=== PATIENT | male | born 1980 | race Caucasian/White ===

== ENCOUNTER → 2017-05-18 | Outpatient (CLI) | payer BC, SELFPAY | PROVIDERS: Visit Provider Surgery | DX: R13.10 Dysphagia, unspecified (principal) | CPT/HCPCS: 74247 ==

== ENCOUNTER 2017-05-30 06:49 | Day surgery (SDC) | payer BC, SELFPAY ==
[2017-05-30 07:17] VITALS: BP 134/79; PULSE 79; RESP 16; TEMP 36.6; O2SAT 96
[2017-05-30 07:33] VITALS: O2SAT 98
[2017-05-30 07:48] VITALS: BMI 28.2
--- NOTE | 2017-05-30 07:48 | HMH.SCOPE ---
- Procedure: Date/Time of Procedure:: 05/30/17 08:13 Procedure Performed:: Esophagogastroduodenoscopy with Biopsies Indications:: Patient is a 37 year old white male on Suboxone, Klonopin, Lexapro referred by Dr. Aj for upper endoscopy to evaluate symptoms consistent with dysphagia. He has been on omeprazole for symptoms of heartburn and reflux for about two years. However, for the past couple of months he has had symptoms where he feels his food does not pass and he has to regurgitate occasionally. I ordered an esophagagram which was normal. Plan was to proceed with upper endoscopy with biopsies and possible dilatation. Performing Provider:: David Willis MD Referring Provider:: Amos Aj MD Sedation:: Propofol Procedure:: Esophagogastroduodenoscopy Findings:: Patient was positioned in a lateral decubitus position. Adequate intravenous sedation was achieved with titration of propofol. Endoscope was inserted via the oropharynx. Esophagus appeared normal. There is no evidence of any stricture or obvious Koch's. Stomach was cannulated and insufflated. Retroflexion revealed no evidence of any significant hiatal hernia. Gastric mucosa patient is obtained for CLOtest for H. pylori. There is an area of prominent gastric mucosa which was biopsied. Pylorus was traversed and within the duodenal bulb there was a focal area of esophagitis. This was biopsied. Biopsy was obtained at the gastroesophageal junction. A couple of distal esophageal biopsies were obtained. Endoscope was withdrawn. Impressions:: Mild focal gastritis Recommendations:: Continue proton pump inhibitors. Treat H. Pylori if positive Complications:: None Estimated blood obtained (mL): 1
[2017-05-30 07:56] VITALS: BP 117/67; PULSE 61; RESP 18; TEMP 36.6; O2SAT 98
[2017-05-30 08:02] VITALS: BP 127/67; PULSE 59; RESP 20; O2SAT 97
--- NOTE | 2017-05-30 08:04 | HMH.ANESCL ---
[facility] Anesthesia Checklist - Airway Assessment C-Spine Mobility Assessed: Yes (MP2) TMJ Mobility Assessed: Yes Dentition: Good Dentition - Neurological Assessment Level of Consciousness: Awake, Alert Hx Seizures: No Numbness or tingling in extremities: No - Anesthesia Plan Anesthesia Risk discussed: Yes ASA Class: II Anesthesia Type: MAC [facility] Anesthesia HX I have reviewed the patient's past medical history: Yes Medical History: Reports:: Hypertension Comment: can- no cpap. anxiety/depression. currently taking suboxone Laterality Cases: Left: Arthroscopy Shoulder (rcr) Other Surgeries: Yes: Other (dental) *Family Hx:: No significant family history
--- NOTE | 2017-05-30 08:07 | P.PN_ITS ---
[facility] Anesthesia Checklist - Airway Assessment C-Spine Mobility Assessed: Yes (MP2) TMJ Mobility Assessed: Yes Dentition: Good Dentition - Neurological Assessment Level of Consciousness: Awake, Alert Hx Seizures: No Numbness or tingling in extremities: No - Anesthesia Plan Anesthesia Risk discussed: Yes ASA Class: II Anesthesia Type: MAC [facility] Anesthesia HX I have reviewed the patient's past medical history: Yes Medical History: Reports:: Hypertension Comment: can- no cpap. anxiety/depression. currently taking suboxone Laterality Cases: Left: Arthroscopy Shoulder (rcr) Other Surgeries: Yes: Other (dental) *Family Hx:: No significant family history
[2017-05-30 08:12] VITALS: BP 115/72; PULSE 51; RESP 20; O2SAT 96
[2017-05-30 08:25] VITALS: BP 130/75; PULSE 50; RESP 20; TEMP 36.6; O2SAT 97
== END 2017-05-30 08:25 | disposition home or self-care (01) ==
LOC: OUTP 06:54
PROVIDERS: Family Provider Emergency Medicine; PCP Emergency Medicine; Visit Provider Surgery
PROC: 0DJ08ZZ Inspection of Upper Intestinal Tract, Via Natural or Artificial Opening Endoscopic (ICD-10-PCS; CPT 43235; principal; 2017-05-30 07:30)
DX: K29.70 Gastritis, unspecified, without bleeding (principal)
CPT/HCPCS: 43239; 87339

== ENCOUNTER → 2021-03-15 10:53 | Outpatient (CLI) | payer BC, SELFPAY ==
--- NOTE | 2021-03-15 10:53 | CA_ITS ---
APPROVED REPORT EXAM: Comprehensive 2D, Doppler, and color-flow Echocardiogram Nurse Technician: Elizabeth Lanier CRT Ht: 6 ft 4 in Wt: 233lbs BSA: 2.36 BP: 128/74 mmHg Indications: Hyperlipidemia, SMOKER, KYRA 2D Dimensions LVOT 2.04 cm (M/F) 1.5-2.5 LA Volume 43.20 mL LA Volume Index 18.30 mL/m2 (M/F) 16-34 M-Mode Dimensions RVDd 2.81 cm (0.9-2.6) LA Diam 3.90 cm (1.9-4.0) LVDd 5.72 cm (3.5-5.7) Ao Diam 4.21 cm (2.0-3.7) LVDs 3.37 cm (3.5-5.7) IVSd 1.21 cm (0.6-1.1) PWd 1.14 cm (0.6-1.1) EF (Teich) 71.20% FS 41.10% EDV (Teich) 161.30 mL TAPSE 3.45 (<1.7) ESV (Teich) 46.40 mL LV Diastology E Decel Time 243.00 (160-240 msec) E/A Ratio 1.31 MED E' 9.40 (< 7 cm/sec) MED A' 10.80 cm/s E'/MED E' Ratio 8.68 (>14) LAT E' 13.70 (<10 cm/sec) LAT A' 16.40 cm/s E/LAT E' Ratio 5.96 (>14) Aortic Valve AO Peak GR. 5.60 mmHg Mitral Valve MV A Velocity 62.00 (40-130 cm/s) E/A Ratio 1.31 MV Decel. Time 243.00 (160-240 ms) Pulmonary Valve PV Peak Velocity 101.00 (50-150 cm/s) Tricuspid Valve TR P. Velocity 209.00 cm/s RAP Estimate 10.00 mmHg RVSP 27.40 mmHg Left Ventricle Left atrium is qualitatively mildly enlarged, left ventricle is normal size, mild quantitative concentric left ventricular hypertrophy, visually estimated ejection fraction 55% with no regional wall motion abnormality, diastolic parameters are within normal range. Right Ventricle Right atrium and right ventricle are relatively normal size and function. Aortic Valve Aortic valve is minimally thickened and fibrosed, there is no aortic stenosis or aortic insufficiency. Mitral Valve Mitral valve grossly normal, there is trace mitral regurgitation. Tricuspid Valve Tricuspid valve grossly normal, there is trace tricuspid regurgitation, tricuspid regurgitation jet velocity is inadequate for calculation of the right ventricular systolic pressure. Pulmonic Valve Pulmonic valve is poorly visualized. Great Vessels Aortic root is normal size. Pericardium No significant pericardial effusion noted. Conclusion 1. Normal left ventricular size, preserved left ventricular systolic function, visually estimated ejection fraction 55% with no regional wall motion abnormality, there is mild concentric left ventricular hypertrophy, diastolic parameters are within normal range. 2. Trace mitral and tricuspid regurgitation. 3. No significant pericardial effusion noted. Electronically signed by : Sidney Ann MD 03/15/2021 21:25:36
== END ==
PROVIDERS: PCP Physician Assistant; Visit Provider Internal Medicine
DX: I10 Essential (primary) hypertension (principal); G47.33 Obstructive sleep apnea (adult) (pediatric); Z72.0 Tobacco use
CPT/HCPCS: 93306

== ENCOUNTER 2022-04-02 14:46 | Emergency (ER) | payer BC, SELFPAY ==
--- NOTE | 2022-04-02 15:44 | EXP.UTC ---
Discharge Plan Disposition Patient Disposition: Home, Self-Care Condition: Good Prescriptions Prescriptions: New ibuprofen [IBU] 800 mg tablet 800 mg PO Q8HP PRN (Reason: Moderate Pain) Qty: 30 0RF ondansetron 4 mg Tablet,Disintegrating 4 mg PO Q8H PRN (Reason: Nausea) Qty: 12 0RF No Action ergocalciferol (vitamin D2) [Vitamin D2] 1,250 mcg (50,000 unit) capsule 1,250 mcg PO WEEKLY propranolol 80 mg capsule,extended release 24 hr 80 mg PO DAILY Qty: 90 3RF losartan 50 mg tablet 50 mg PO DAILY Qty: 90 3RF buprenorphine-naloxone 8-2 mg tablet, sublingual 1 tab SUBLINGUAL DAILY Qty: 21 Referrals Follow up/Referrals: Trip Aj MD [Primary Care Provider] - See instructions Activity Restrictions/Add. Instructions Additional Instructions/Restrictions: Drink plenty of fluids. Take tylenol or ibuprofen for pain or fever. Take the medications as directed. Follow up with your regular doctor. GO TO THE ER FOR ANY WORSENING SYMPTOMS Clinical Impressions Clinical Impression: COVID-19, Viral syndrome Instructions Patient Instructions: Coronavirus Disease 2019, Preventing the Spread of Coronavirus Discharge Instructions Discharge ED Provider: Jose Cordoba [facility] HPI General Stated complaint: Covid Test Time Seen by Provider: 04/02/22 15:40 History of Present Illness Provider Complaint: He states that he has felt bad since yesterday. He has had a headache, chills, low grade fever and nausea. Related Data Home Medications Medication Instructions Recorded Confirmed buprenorphine 8 mg-naloxone 2 mg 1 tab sublingual DAILY #21 tabs 07/12/19 02/23/22 sublingual tablet ergocalciferol (vitamin D2) 1,250 1,250 mcg PO WEEKLY 02/23/22 02/23/22 mcg (50,000 unit) capsule (Vitamin D2) Previous Rx's Medication Instructions Recorded losartan 50 mg tablet 50 mg PO DAILY #90 tabs 02/23/22 propranolol 80 mg capsule,24 80 mg PO DAILY hypertension #90 02/23/22 hr,extended release caps ibuprofen 800 mg tablet (IBU) 800 mg PO Q8HP PRN Moderate Pain 04/02/22 #30 tabs ondansetron 4 mg disintegrating 4 mg PO Q8H PRN Nausea #12 tabs 04/02/22 tablet Allergies Allergy/AdvReac Type Severity Reaction Status Date / Time No Known Allergies Allergy Verified 02/23/22 13:15 PFSH PFSH Medical History Chest pain Daytime somnolence Dyspnea KYRA (obstructive sleep apnea) Restless sleeper Snoring Social History Smoking Status: Current every day smoker tobacco type: cigarettes packs per day: 1 alcohol intake: current counseling provided: provider counseling substance use type: former substance user current occupational status: employed Travel in the last 8 weeks: Inside the [place] household members: family housing: house ROS Obtained: Yes All systems reviewed & no additional complaints except as documented Constitutional Constitutional: Reports chills and Reports fever(s) Eyes Eyes: Denies eye discharge ENT Ears, Nose, Mouth, and Throat: Reports as per HPI Cardiovascular Cardiovascular: Denies chest pain Respiratory Respiratory: Denies chest congestion and Reports cough Gastrointestinal Gastrointestingal: Reports nausea; Denies abdominal pain, constipation, cramping, diarrhea or vomiting Musculoskeletal Musculoskeletal: Denies arthralgias Integumentary/Breasts Skin/Breast: Denies rash Neurologic Neurologic: Denies paresthesias Physical Exam General General appearance: alert and in no apparent distress Head Head exam: atraumatic, normocephalic and normal inspection Eye Eye exam: Present normal appearance, PERRL and EOMI ENT ENT exam: Present mucous membranes moist and normal external ear exam Expanded ENT Exam TM/Canal exam: Bilateral TM: erythema and bulging Nose exam: Absent sinus tenderness Mouth exam: Present normal e
[2022-04-02 16:00] LABS: UTC Influenza A Antigen Negative (Negative); UTC Influenza B Antigen Negative (Negative)
[2022-04-02 16:10] VITALS: BP 108/71; PULSE 78; RESP 18; TEMP 37.2; O2SAT 99; BMI 29.6
[2022-04-02 16:16] VITALS: BP 108/71; PULSE 78; RESP 18; TEMP 37.2
== END 2022-04-02 16:18 | disposition home or self-care (01) ==
PROVIDERS: Emergency Provider Nurse Practitioner Family; PCP Emergency Medicine
DX: U07.1 COVID-19 (principal)
CPT/HCPCS: 87804; 99212; C9803; G0463; U0003; U0005

== ENCOUNTER → 2023-03-16 12:07 | Outpatient (CLI) | payer BC, SELFPAY ==
[2023-03-16 12:28] LABS: Basophils # 0.1 K/mm3 (0-0.2); Basophils % 0.5 % (0.1-2.0); Eosinophils # 0.5 K/mm3 (0.0-0.4); Eosinophils % 4.6 % (0.1-12.0); Hematocrit 43.7 % (42.0-52.0); Lymphocytes # 2.3 K/mm3 (0.7-4.5); Lymphocytes % 22.1 % (10-50); Mean Corpuscular HGB Conc 34.3 g/dL (31.8-35.4); Mean Corpuscular Hemoglobin 32.2 pg (27.0-31.2); Mean Corpuscular Volume 93.8 fl (80-94); Mean Platelet Volume 7.9 fl (7.4-10.4); Monocytes # 0.6 K/mm3 (0.1-1.0); Monocytes % 5.3 % (1.7-9.3); Neutrophils # 7.1 K/mm3 (1.8-7.8); Neutrophils % 67.4 % (37.0-80.0); Platelet Count 268 K/mm3 (142-424); Red Blood Count 4.66 M/mm3 (4.60-6.20); Red Cell Distribution Width 12.7 % (11.5-17.5); White Blood Count 10.5 K/mm3 (4.8-10.8)
[2023-03-16 13:27] LABS: Alanine Aminotransferase 29 U/L (12-78); Albumin Level 4.4 g/dl (3.5-5.0); Alkaline Phosphatase 70 U/L (38-126); Anion Gap 13.2 mEq/L (5-15); Aspartate Amino Transferase 29 U/L (17-59); Bilirubin,Direct 0.1 mg/dl (0.0-0.4); Bilirubin,Indirect 0.3 mg/dL (0.0-0.9); Bilirubin,Total 0.4 mg/dl (0.2-1.3); Bilirubin,Unconjugated 0.3 mg/dL (0.0-1.1); Blood Urea Nitrogen 15 mg/dl (9-20); Calcium 9.6 mg/dl (8.4-10.2); Carbon Dioxide 28 mmol/L (22.0-30.0); Chloride 103 mmol/L (98-107); Estimated Glomerular Filt Rate 106 ml/min (>60); GFR (African American) 128 ML/MIN (>60); Glucose 90 mg/dl (74-100); HDL Cholesterol 37 mg/dl (40-60); Potassium 4.2 mmoL/L (3.5-5.1); Sodium 140 mmol/L (136-145); Total Protein,Serum 7.2 g/dl (6.3-8.2)
[2023-03-16 13:29] LABS: Cholesterol 185 mg/dl (140-200); Triglycerides 129 mg/dl (30-150); VLDL Cholesterol 26 mg/dL (0-40)
[2023-03-16 13:38] LABS: Direct LDL Cholesterol 116.47 mg/dL (100-129)
[2023-03-16 13:43] LABS: Free T4 (Free Thyroxine) 1.28 ng/dl (0.78-2.19)
[2023-03-16 13:58] LABS: Thyroid Stimulating Hormone 1.28 uIU/mL (0.465-4.68)
== END ==
PROVIDERS: PCP Emergency Medicine; Visit Provider Nurse Practitioner
DX: I10 Essential (primary) hypertension (principal); E78.5 Hyperlipidemia, unspecified; Z79.899 Other long term (current) drug therapy
CPT/HCPCS: 36415; 80048; 80061; 80076; 83735; 84439; 84443; 85025

== ENCOUNTER → 2023-03-22 07:47 | Outpatient (CLI) | payer BC, SELFPAY ==
--- NOTE | 2023-03-22 07:47 | NM_ITS ---
APPROVED REPORT Exam: Nuclear Stress Test Indication: chest pain..fatigue..high bp..tobacco use Patient Location: Outpatient Stress Tech: Anusha WU Tech:LIZETT Gaxiola RT(R)(N) Ht: 5 ft 4 in Wt: 225 lbs HR: 53 bpm BP: 115/73 mmHg BSA: 2.06 m2 Rhythm: NSR TID: 1.01 BMI: 38.6 History: chest pain..fatigue..high bp..tobacco use Procedure: Patient exercised on Chava protocol 9:30 minutes and sec, resting heart rate 53 bpm, resting blood pressure 115/73 mmHg, with exercise maximum heart rate achived was 156 bpm which is 88 % of the maximum predicted heart rate and blood pressure was 184/80 mmHg. Test was stopped due to soa. Patient has Average exercise capacity, achieved 10.1 METs of workload on treadmill, the blood pressure response to exercise was Normal. Cardiac Stress and Resting SPECT Images: Cardiac Stress and Resting SPECT images were obtained using technetium 99m Myoview 32.1 mCi stress and 10.80 mCi at rest. Resting and stress imaging in supine and prone positions demonstrate a medium sized, mild, predominantly reversible perfusion defect in the basal to mid inferior LV wall. Gated imaging demonstrates low normal global and regional LV systolic function. LVEF is calculated at 50%. Conclusion: Medium sized, mild, predominantly reversible perfusion defect in the basal to mid inferior LV wall. Findings are suggestive of possible reversible ischemia. Gated imaging demonstrates low normal global and regional LV systolic function. LVEF is calculated at 50%. Electronically signed by : Inga Vargas MD 03/22/2023 21:51:38
--- NOTE | 2023-03-22 10:25 | CA_ITS ---
APPROVED REPORT Exam: Exercise Treadmill Technologist: Anusha Russ Ht: 6 ft 2 in Wt: 223 lbs BSA: 2.28 m2 HR: 53 bpm BP: 115/73 mmHg Rhythm: NSR Indications: Chest pain, Shortness of Air Medical History Medications: Losartan,,,,, BuPRenorphinE-Naloxone,,,,, Propranolol ER,,,,, Stress Test Details Test: Chaav HR Resting HR: 69 bpm Max Heart Rate (APMHR): 178 bpm Max HR Achieved: 156 bpm Target HR (85% APMHR): 151 bpm % of APMHR: 88 Recovery HR: 83 bpm HR response to stress: Normal HR response to stress BP Resting BP: 115.0/73.0 mmHg Max BP: 184.0/80.0 mmHg Recovery BP: 129.0/74.0 mmHg BP response to stress: Normal blood pressure response to stress. ECG Resting ECG: Sinus bradycardia Stress ECG: < 0.[address] depression Arrhythmia: PVCs Recovery ECG: Return to baseline within 1 minute of recovery Recovery Arrhythmia: PVCs Clinical Exercise duration: 09:30 min Highest Stage Achieved: Exercise capacity: 10.1 METs Overall Exercise Capacity for Age: Average Stress ECG Conclusion The patient was able to exercise for a total of 9 minutes, 30 seconds. He achieved a total of 10.1 METS. He has average exercise capacity compared to age and sex matched peers. He has normal HR and BP response to exercise. Symptoms: No chest pain Arrhythmias/Ectopy: Occasional PVC ST-T Changes: < 0.[address] depression Conclusion: Average exercise capacity. Normal GXT. Myoview images reported separately. Test Summary REST . . . . . . . Sitting REST . . . . . . . Standing REST 04:10 0.0 0.0 69 . 115/ 73 . . Stage 1 01:00 10.0 1.7 100 . . . . Stage 1 02:00 10.0 1.7 113 . . . . Stage 1 03:00 10.0 1.7 106 . 180/ 86 . . Stage 2 01:00 12.0 2.5 116 . . . . Stage 2 02:00 12.0 2.5 120 . . . . Stage 2 03:00 12.0 2.5 118 . 184/ 80 . . Stage 3 01:00 14.0 3.4 135 . . . . Stage 3 02:00 14.0 3.4 138 . . . . Stage 3 . . . . . . . Myoview Injected Stage 3 03:00 14.0 3.4 140 . . . . Stage 4 00:30 16.0 4.2 154 . . . Stop exercise at 09:30 RECOVERY 01:00 0.0 0.0 122 . . . . RECOVERY 02:00 0.0 0.0 98 . . . . RECOVERY 03:00 0.0 0.0 91 . 143/ 84 . . RECOVERY 04:00 0.0 0.0 83 . 142/ 83 . . RECOVERY 05:00 0.0 0.0 82 . 129/ 74 . . RECOVERY 05:20 0.0 0.0 85 . 129/ 74 . . Electronically signed by : Inga Vargas MD 03/22/2023 21:49:22
== END ==
PROVIDERS: PCP Emergency Medicine; Visit Provider Nurse Practitioner
DX: I20.89 Other forms of angina pectoris (principal); I10 Essential (primary) hypertension; Z72.0 Tobacco use
CPT/HCPCS: 78452; 93017; A9502

== ENCOUNTER 2023-06-13 19:00 | Outpatient (CLI) | payer BC, SELFPAY ==
[2023-06-13 18:07] LABS: Adenovirus,PCR Not Detected (NotDetected); Coronavirus 19, PCR Not Detected (NotDetected); Coronavirus 229E Not Detected (NotDetected); Coronavirus NL63 Not Detected (NotDetected); Coronavirus OC43 Not Detected (NotDetected); Coronovirus HKU1,PCR Not Detected (NotDetected); Human Metapneumovirus Not Detected (NotDetected); Influenza A, PCR Not Detected (NotDetected); Influenza AH1, 2009 Not Detected (NotDetected); Influenza AH1, PCR Not Detected (NotDetected); Influenza AH3,PCR Not Detected (NotDetected); Influenza B, PCR Not Detected (NotDetected); Parainfluenza 1, PCR Not Detected (NotDetected); Parainfluenza 2, PCR Not Detected (NotDetected); Parainfluenza 3, PCR Not Detected (NotDetected); Parainfluenza 4, PCR Not Detected (NotDetected); Rhinovirus/Enterovirus Not Detected (NotDetected)
[2023-06-13 23:43] LABS: Respiratory Syncytial Virus Detected (NotDetected)
== END 2023-06-13 23:59 ==
LOC: LAB.DROPOF 19:00
PROVIDERS: PCP Student in an Organized Health Care Education/Training Program; Visit Provider Student in an Organized Health Care Education/Training Program
DX: J02.9 Acute pharyngitis, unspecified (principal); R05.9 Cough, unspecified; B95.4 Other streptococcus as the cause of diseases classified elsewhere; B97.4 Respiratory syncytial virus as the cause of diseases classified elsewhere
CPT/HCPCS: 87070; 87632; 87635

== ENCOUNTER 2023-09-21 12:58 | Outpatient (CLI) | payer BC, SELFPAY | END 2023-09-21 23:59 | disposition home or self-care (01) | LOC: LAB.DROPOF 09-22 12:59 | PROVIDERS: PCP Student in an Organized Health Care Education/Training Program; Visit Provider Student in an Organized Health Care Education/Training Program | DX: J02.9 Acute pharyngitis, unspecified (principal) | CPT/HCPCS: 87070 ==

== ENCOUNTER → 2024-01-22 11:07 | Outpatient (CLI) | payer OTHER, SELFPAY | LOC: SL 11:22 | PROVIDERS: PCP Physician Assistant; Visit Provider Specialist | DX: G47.33 Obstructive sleep apnea (adult) (pediatric) (principal) | CPT/HCPCS: G0399 ==

== ENCOUNTER 2024-02-11 15:08 | Emergency (ER) | payer OTHER, SELFPAY ==
[2024-02-11 15:35] VITALS: BP 142/61; PULSE 62; RESP 20; TEMP 36.6; O2SAT 96; BMI 27.2
[2024-02-11 15:49] LABS: Coronavirus 19, PCR Not Detected (NotDetected); Influenza A, PCR Not Detected (NotDetected); Influenza B, PCR Not Detected (NotDetected)
--- NOTE | 2024-02-11 16:07 | EXP.UTC ---
Discharge Plan Disposition Patient Disposition: Home, Self-Care Condition: Good Prescriptions Prescriptions: New benzonatate 100 mg capsule 100 mg PO TID PRN (Reason: cough) Qty: 30 0RF fluticasone propionate [Flonase Allergy Relief] 50 mcg/actuation spray,suspension 2 spray intranasal DAILY Qty: 16 0RF Rx Instructions: administer into each nostril daily azithromycin [Zithromax Z-Beny] 250 mg tablet See Rx Instructions .ROUTE .COMPLEX 5 Days Qty: 6 0RF Rx Instructions: For 250 mg dose pack: take 500 mg today (day 1), then 250 mg for 4 days (days 2-5) guaifenesin [Mucinex] 600 mg tablet extended release 12hr 1,200 mg PO BID PRN (Reason: cough) Qty: 20 0RF No Action losartan 50 mg tablet 50 mg PO DAILY Patient Comments: TAKE 1 TABLET 1 TIME EACH DAY propranolol 80 mg capsule,extended release 24 hr 80 mg PO DAILY Patient Comments: TAKE 1 CAPSULE 1 TIME EACH DAY FOR HIGH BLOOD PRESSURE buprenorphine-naloxone 8-2 mg tablet, sublingual 1 tab SUBLINGUAL DAILY Referrals Follow up/Referrals: Jesus Marks DO [Primary Care Provider] - See instructions Activity Restrictions/Add. Instructions Additional Instructions/Restrictions: *Monitor Temp, Over the counter Motrin or Tylenol as directed/as needed Tylenol every 4 hours and Motrin every 6 hours (as long as your family doctor has told you that you can take it) for fever or pain. and straight to ER if unable to lower temp less than 101.0 after medication given *Warm salt water gargles may help to soothe the throat *Throat Lozenges? *Warm fluids like tea with honey may help to soothe the throat? *Sleep elevated *Humidifier/Vaporizer *Flonase 2 sprays in each nostril daily but be aware that it may take 2-3 days before you notice improvement Your throat swab was sent for culture. Those results are typically sent to your primary care. Be sure to follow up in 2-3 days with your family doctor/primary care physician if no improvement so they can review those result and treat if necessary. If you don?t have a primary care doctor, I recommend you get one but in the mean time, you will have to return to a walk in clinic Follow up IMMEDIATELY for new or worsening symptoms or no Noticeable improvement over the next 48-72 hours. 911 for difficulty breathing or swallowing You were tested for today for COVID19 your test result should be back in the next 24 hours, you may check your results on the [facility] Portal Clinical Impressions Clinical Impression: Pharyngitis Stand Alone Forms Stand Alone Forms: Work/School Release Instructions Patient Instructions: Sore Throat, DI for Sinusitis Print Language Print Language: Hungarian Discharge ED Provider: Kiera Mujica [facility] [place] HPI General Stated complaint: body aches, fever, chills, cough Mode of Arrival: Ambulatory Source of Information: Patient Limitations: No Limitations Time Seen by Provider: 02/11/24 16:07 Description of Symptoms (Recalled from Triage Doc. by RN): PATIENT C/O BODY ACHES, CHILLS, NAUSEA, SORE THROAT, COUGH, AND DIZZINESS AND HEADACHE X 3 DAYS HEENT Symptoms (Recalled from RN notes): Yes Resp Symptoms (Recalled from RN notes): Yes Skin Symptoms (Recalled from RN notes): No MS Symptoms (Recalled from RN notes): No Functional Status (Recalled from RN notes): WNL History of Present Illness Provider Complaint: Patient states that he has been sick for about 3-4 days States he has been having sore throat, headache, body aches, sinus congestion and pressure, dizziness at times and cough states today he wasnt feeling any better and his throat was bothering him worse so he came in to get checked Related Data Home Medications ?Medication ?Instructions ?Recorded ?Confirmed buprenorphine 8 mg-naloxone 2 mg 1 tab sublingual DAILY 02/11/24 02/11/24 sublingual tablet losartan 50 mg tablet 50 mg PO DAILY 02/11/24 02/11/24 propranolol 80 mg capsule,24 80 mg PO DAILY 02/11/24 02/11/24 hr,extended release Previous Rx's ?Medication ?Instructions ?Recorded azithromycin 250 mg tablet See Rx Instructions PO .COMPLEX 5 02/11/24 (Zithromax Z-Beny) days #6 tabs benzonatate 100 mg capsule 100 mg PO TID PRN cough #30 caps 02/11/24 fluticasone propionate 50 2 spray intranasal DAILY #16 grams 02/11/24 mcg/actuation nasal spray,suspension (Flonase Allergy Relief) guaifenesin 600 mg tablet, 1,200 mg (2 x 600 mg) PO BID PRN 02/11/24 extended release 12 hr (Mucinex) cough #20 tabs Allergies Allergy/AdvReac Type Severity Reaction Status Date / Time No Known Allergies Allergy Verified 09/21/23 11:40 Worker's Comp Is this a Worker's Comp case?: No [facility] Disclaimer: The information contained in this section may have been updated after the patient was seen, as this information can be updated by other users. Medical History Dyspnea Chest pain KYRA (obstructive sleep apnea) Restless sleeper Daytime somnolence Snoring Polysubstance (excluding opioids) dependence Surgical History No significant past surgical history Family History Other No significant family history Social History Smoking Status: Current every day smoker tobacco type: cigarettes packs per day: 1 alcohol intake: current alcohol intake frequency: holidays/special occasions only counseling provided: provider counseling substance use type: former substance user current occupational status: employed Travel in the last 8 weeks: [place] the [place] household members: family housing: house ROS Obtained: Yes All systems reviewed & no additional complaints except as documented and Yes Systems reviewed as appropriate & no additional complaints except as documented Constitutional Constitutional: Reports system reviewed and no additional complaints, except as documented, Reports as per HPI, Reports body ache, Reports chills, Reports fever(s) and Reports headache(s) ENT Ears, Nose, Mouth, and Throat: Reports system reviewed and no additional complaints, except as documented, Reports as per HPI, Reports otalgia, Reports headache(s), Reports sinus pain, Reports sinus pressure and Reports sore throat Cardiovascular Cardiovascular: Reports system reviewed and no additional complaints, except as documented and Reports as per HPI Respiratory Respiratory: Reports system reviewed and no additional complaints, except as documented, Reports as per HPI and Reports cough Gastrointestinal Gastrointestingal: Reports system reviewed and no additional complaints, except as documented, as per HPI and nausea Neurologic Neurologic: Reports headache(s) Physical Exam General General appearance: alert and in no apparent distress ENT ENT exam: Present mucous membranes moist Expanded ENT Exam Nose exam: Present sinus tenderness Throat exam: Present tonsillar erythema (white patchy like spot noted on right ) Respiratory Respiratory exam: Present normal lung sounds bilaterally; Absent respiratory distress or wheezes Cardiovascular Cardiovascular exam: Present regular rate, normal rhythm and normal heart sounds Abdominal Exam Abdominal exam: Present soft and normal bowel sounds; Absent distention or tenderness Neurological Exam Neurological exam: Present alert, oriented X3 and normal gait Medical Decision Making Javier Inquiry Pt receiving controlled substance: No Javier was queried for this patient: No Vital Signs: 02/11/24 15:35 Temperature 97.8 F Temperature Source Oral Pulse Rate [Left Brachial] 62 Respiratory Rate 20 Blood Pressure [Left Arm] 142/61 H Blood Pressure Mean [Left Arm] 88 Blood Pressure Source [Left Arm] Automatic Cuff Blood Pressure Position [Left Arm] Sitting 02 Sat by Pulse Oximetry 96 Oxygen Delivery Method Room Air Lab Data Lab results reviewed: Yes I reviewed the patient's lab results. Orders (Tests/Meds): ORDERS Category Date Time Status Rapid PCR Covid and Flu A/B Stat Lab 02/11/24 15:35 Received
[2024-02-11 16:21] VITALS: BP 142/61; PULSE 62; RESP 20; TEMP 36.6; O2SAT 96
[2024-02-11 16:23] LABS: UTC Strep Screen (Rapid) Negative (Negative)
== END 2024-02-11 16:25 | disposition home or self-care (01) ==
PROVIDERS: Emergency Provider Nurse Practitioner; PCP Internal Medicine
DX: J02.9 Acute pharyngitis, unspecified (principal); R50.9 Fever, unspecified; R51.9 Headache, unspecified; R05.9 Cough, unspecified
CPT/HCPCS: 87636; 87880; 99212; 99214; G0463